=== PATIENT | female | born 1995 | race Caucasian/White ===

== ENCOUNTER → 2023-06-13 09:15 | Outpatient (BNV) | payer MEDICARE, MEDICAID, SELFPAY | PROVIDERS: Visit Provider Psychiatry & Neurology Psychiatry | DX: F63.9 Impulse disorder, unspecified (principal) | CPT/HCPCS: 90792; 99213 ==

== ENCOUNTER 2023-06-26 08:45 | Outpatient (RCR) | payer MEDICARE, MEDICAID, SELFPAY ==
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
[2023-06-13 11:43] VITALS: BMI 29.9
[2023-06-13 11:44] VITALS: BP 100/76; PULSE 88; TEMP 37.1
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
--- NOTE | 2023-06-19 16:45 | HO.PHP ---
on 06/15/23 the client case was reviewed and opened in treatment team.
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
--- NOTE | 2023-06-26 16:02 | HO.PHPPROGNO ---
Subjective Subjective Date of Service: 06/26/23 Reason For Visit: schizophrenia Interim History: Patient seen for discharge today. Reports mood is alright . Denies any SI or aggressive ideation. Denies A/VH. She feels her time spent in the program has been fine . Denies having any issues or concerns. Says she is no longer feeling angry. If she does get angry she says she would manage by going up to my room to spend some quiet time alone. Things at home are stable. her mom helps manage her medication. Med compliant, has been well-tolerated, and is not needing any refills at this time. Medication Compliance: Yes Side effects from medications: No Mental Status Exam Mental Status Exam Narrative: Alert, oriented in no acute distress. Calm, forthcoming. Normal speech. Short responses. Intermittent eye contact. Mood is euthymic. Affect is constricted but appropriate. No signs of psychosis. No delusions. She denies any SI/HI. She is aware of her impulse control difficulties and anger. Cognitively she appears to be grossly intact with some limitations. Insight limited but adequate, judgment is intact Diagnostics Vital Signs (24Hr): BMI result Body Mass Index 29.9 Assessment & Plan Assessment & Plan (1) Impulse control disease: Status: Acute Code(s): F63.9 - Impulse disorder, unspecified Plan Discharge from [facility] today, follow-up with community providers Reviewed discharge instructions with patient, patient was given packet by staff Rx: no refills needed at this time. Continue on medications Primary supports: family. Lives at home. Patient educated on: diagnosis and medication risk/benefits Informed Consent: understands Certification I certify that partial hospital treatment is medically necessary due to the symptoms and problems resulting from the patient's mental illness and the failure to treat the patient at the partial hospital level of care would likely result in the patient requiring inpatient psychiatric care which could not be prevented at a less intensive level of care. Total time managing care of this patient today __30__ minutes. Discharge Plan Discharge Attending provider: Boogie [facility] Additional Instructions: Pt's next outpatient appointment with Rocio Yepez is scheduled for July 27, 2024 at 4pm. Her prescriber appointment is set for July, exact day unknown by job specification writer, Pt forgot. Pt's mother contacted, she also forgot the day and time but confirmed the appt has been made and is in July. Medications: No Action benztropine 0.5 mg tablet 0.5 mg PO BID lithium carbonate 600 mg Capsule 600 mg PO BID olanzapine 15 mg tablet 15 mg PO BEDTIME trazodone 50 mg tablet 50 mg PO BEDTIME lisdexamfetamine 50 mg Capsule 50 mg PO DAILY Rx Instructions: Last filled 06/08/23 for 50 mg daily. Stand Alone Forms: Patient Portal Discharge page
== END 2023-06-26 23:59 | disposition home or self-care (01) ==
LOC: HO.PHPA 08:45
PROVIDERS: Visit Provider Psychiatry & Neurology Psychiatry
DX: F63.9 Impulse disorder, unspecified (principal); Z79.899 Other long term (current) drug therapy
CPT/HCPCS: 90791; 90853